=== PATIENT | female | born 1950 | race Caucasian/White ===

== ENCOUNTER → 2017-02-25 | Outpatient (CLI) | payer MEDICARE ==
--- NOTE | 2017-02-25 14:13 | KCIC ---
MRI Brain without contrast History: Headache, pain at the top of head with coughing last 3-4 months Technique: Multiplanar, multisequential noncontrast MR imaging was performed of the brain. Contrast: None Comparison: None Findings: There is no evidence of recent infarct or cytotoxic edema. Ventricular size is within normal limits.There is no significant midline shift, intraaxial mass effect, or focal abnormal extra-axial fluid collection. There is very mild T2 and FLAIR hyperintense abnormality of the supratentorial periventricular white matter bilaterally. There also a few small foci in the deep white matter such as of the frontal parietal lobes, also minimally of the karen. There is no significant hemosiderin deposition of the brain parenchyma. There are some cysts of the choroid plexus bilaterally. There is preservation of the major intracranial flow-voids at the skull base. The cerebellar tonsils are normal in location. There is no significant abnormality of the pineal gland or pituitary gland. There is patchy mild ethmoid air cell mucosal thickening bilaterally. There is a small probable mucous retention cyst of the anterolateral left sphenoid sinus 0.6 cm. Mastoid air cells are mostly aerated, some very small foci of fluid bilaterally. There is nonspecific heterogeneous low signal of the marrow of the nonexpanded clivus. Impression: 1. Minimal T2 and FLAIR hyperintense abnormality of the supratentorial parenchyma and karen is nonspecific, may be due to chronic microvascular disease in a patient this age. White matter changes can be seen in patients with migraine headaches. No other significant intracranial abnormality is identified. 2. There is nonspecific heterogeneous low signal of the marrow of the nonexpanded clivus inferiorly. While other underlying marrow lesion is difficult to entirely exclude, findings may be due to hyperplastic red marrow as can be associated with chronic or systemic stress reaction or hypoxia. Electronically signed by: Armaan Darnell MD (02/25/2017 2:09 PM) [facility]
== END | disposition home or self-care (01) ==
LOC: KCIC MRI 13:02
PROVIDERS: ATTEND Family Medicine
DX: R51 Headache (principal); R05 Cough
CPT/HCPCS: 70551

== ENCOUNTER 2018-11-20 09:14 | Emergency (ER) | payer MEDICARE, OTHER ==
[~2018-11-20] VITALS: Ht 170.2 cm; Wt 63.5 kg
[2018-11-20] MEDS ORDERED: IPRATRPIUM/ALBUTEROL 0.5/2.5MG 3 ML NEBU. NEB ONE (09:45)
[2018-11-20] MEDS ORDERED: methylPREDNISolone SOD SUCC PF 125 MG/2 ML VIAL. IV ONE (09:45)
[2018-11-20 09:52] LABS: BASO % 1 % (0-3); EOS # 0.1 x10^3/uL (0.0-0.7); EOS % 1 % (0-3); HEMATOCRIT 42.6 % (36.0-47.0); HEMOGLOBIN 14.7 g/dL (12.0-15.5); LYMPH % 20 % (24-48); MEAN CORPUSCULAR HEMOGLOBIN 32 pg (25-35); MEAN CORPUSCULAR HGB CONC 35 g/dL (31-37); MEAN CORPUSCULAR VOLUME 93 fL (79-100); MONO # 0.3 x10^3/uL (0.0-1.1); MONO % 7 % (0-9); NEUT # 3.4 x10^3/uL (1.8-7.7); NEUT % 71 % (31-73); PLATELET COUNT 219 x10^3/uL (140-400); RED BLOOD COUNT 4.59 x10^6/uL (3.50-5.40); RED CELL DISTRIBUTION WIDTH 13.8 % (11.5-14.5); WHITE BLOOD COUNT 4.7 x10^3/uL (4.0-11.0)
[2018-11-20 10:08] LABS: CALCIUM 9.2 mg/dL (8.5-10.1); CREATININE 0.6 mg/dL (0.6-1.0); GFR 99.1; POTASSIUM 4.2 mmol/L (3.5-5.1)
[2018-11-20 10:15] LABS: ALBUMIN 3.9 g/dL (3.4-5.0); ALBUMIN/GLOBULIN RATIO 1.1 (1.0-1.7); TOTAL BILIRUBIN 0.4 mg/dL (0.2-1.0); TOTAL PROTEIN 7.4 g/dL (6.4-8.2)
--- NOTE | 2018-11-20 10:25 | RAD ---
CHEST PA LATERAL History: Cough and shortness of breath Comparison: None. Findings: The cardiomediastinal silhouette is normal. Pulmonary vasculature is normal. The lungs are clear. No pleural effusion or pneumothorax is seen. Density at the posterior left paraspinal region which may represent hernia defect is evident. There is no acute bone abnormality. IMPRESSION: No acute cardiopulmonary process. Density at the posterior left paraspinal region which may represent hernia defect correlate with previous exams to assess stability. Electronically signed by: Leonardo Addison MD (11/20/2018 10:22 AM) [facility]
[2018-11-20] MEDS ORDERED: cefTRIAXone IV Push 1 GM VIAL. IVP ONE (11:15)
[2018-11-20 11:18] VITALS: BP 142/67
[2018-11-20] MEDS ORDERED: METH4TAB2 PO (11:41)
[2018-11-20] MEDS ORDERED: DOXY100C2 PO (11:41)
--- NOTE | 2018-11-20 11:41 | PHYS DOC ---
Past Medical History Past Medical History: No Pertinent History Alcohol Use: None Drug Use: None Adult General Chief Complaint Chief Complaint: SHORTNESS OF BREATH HPI HPI Patient is a 68 year old female with history of more than 50 years of smoking who presents with complaining of cough and shortness of breath. Patient complaining of productive cough with yellow sputum for the last 5 days and episodes of shortness of breath with mild activity. Patient denies fever and chest pain states his chest soreness during episodes of cough. Patient states she decreased her smoking to one or 2 cigarettes a day but still doesn't feel better. Patient has nebulizer and inhaler at home and treatment without improvement of her condition. Review of Systems Review of Systems Constitutional: Denies fever or chills [] Eyes: Denies change in visual acuity, redness, or eye pain [] HENT: Denies nasal congestion or sore throat [] Respiratory: Reports cough and shortness of breath Cardiovascular: No additional information not addressed in HPI [] GI: Denies abdominal pain, nausea, vomiting, bloody stools or diarrhea [] : Denies dysuria or hematuria [] Musculoskeletal: Denies back pain or joint pain [] Integument: Denies rash or skin lesions [] Neurologic: Denies headache, focal weakness or sensory changes [] Endocrine: Denies polyuria or polydipsia [] All other systems were reviewed and found to be within normal limits, except as documented in this note. Current Medications Current Medications Current Medications Medications (Trade) Dose Ordered Sig/Sofiya Start Time Stop Time Status Last Admin Dose Admin Albuterol/ Ipratropium (Duoneb) 3 ml 1X ONCE 11/20/18 09:45 11/20/18 09:52 DC 11/20/18 09:44 3 ML Ceftriaxone Sodium (Rocephin) 1 gm 1X ONCE 11/20/18 11:15 11/20/18 11:16 DC 11/20/18 11:21 1 GM Methylprednisolone Sodium Succinate (SOLU-Medrol 125MG VIAL) 125 mg 1X ONCE 11/20/18 09:45 11/20/18 09:52 DC 11/20/18 09:51 125 MG Allergies Allergies Allergies Coded Allergies Type Severity Reaction Last Updated Verified No Known Drug Allergies 11/20/18 No Physical Exam Physical Exam Constitutional: Well developed, well nourished, mild distress, non-toxic ap pearance. [] HENT: Normocephalic, atraumatic. Eyes: PERRLA, EOMI, conjunctiva normal, no discharge. [] Neck: Normal range of motion, no tenderness, supple, no stridor. [] Cardiovascular:Heart rate regular rhythm, no murmur [] Lungs & Thorax: Decrease of bilateral air movement Abdomen: Bowel sounds normal, soft, no tenderness, no masses, no pulsatile masses. [] Skin: Warm, dry, no erythema, no rash. [] Back: No tenderness, no CVA tenderness. [] Extremities: No tenderness, no cyanosis, no clubbing, ROM intact, no edema. [] Neurologic: Alert and oriented X 3, no focal deficits noted. [] Psychologic: Affect normal, judgement normal, mood normal. [] Current Patient Data Vital Signs Vital Signs Date Time Temp Pulse Resp B/P (MAP) Pulse Ox O2 Delivery O2 Flow Rate FiO2 11/20/18 11:18 68 18 142/67 (92) 96 11/20/18 09:45 Room Air 11/20/18 09:23 97.8 97.8 Lab Values Laboratory Tests Test 11/20/18 09:43 White Blood Count 4.7 x10^3/uL (4.0-11.0) Red Blood Count 4.59 x10^6/uL (3.50-5.40) Hemoglobin 14.7 g/dL (12.0-15.5) Hematocrit 42.6 % (36.0-47.0) Mean Corpuscular Volume 93 fL (79-100) Mean Corpuscular Hemoglobin 32 pg (25-35) Mean Corpuscular Hemoglobin Concent 35 g/dL (31-37) Red Cell Distribution Width 13.8 % (11.5-14.5) Platelet Count 219 x10^3/uL (140-400) Neutrophils (%) (Auto) 71 % (31-73) Lymphocytes (%) (Auto) 20 % (24-48) L Monocytes (%) (Auto) 7 % (0-9) Eosinophils (%) (Auto) 1 % (0-3) Basophils (%) (Auto) 1 % (0-3) Neutrophils # (Auto) 3.4 x10^3/uL (1.8-7.7) Lymphocytes # (Auto) 1.0 x10^3/uL (1.0-4.8) Monocytes # (Auto) 0.3 x10^3/uL (0.0-1.1) Eosinophils # (Auto) 0.1 x10^3/uL (0.0-0.7) Basophils # (Auto) 0.0 x10^3/uL (0.0-0.2) D-Dimer (Nora) < 0.27 ug/mlFEU Sodium Level 139 mmol/L (136-145) Potassium Level 4.2 mmol/L (3.5-5.1) Chloride Level 103 mmol/L (98-107) Carbon Dioxide Level 30 mmol/L (21-32) Anion Gap 6 (6-14) Blood Urea Nitrogen 13 mg/dL (7-20) Creatinine 0.6 mg/dL (0.6-1.0) Estimated GFR (Cockcroft-Gault) 99.1 BUN/Creatinine Ratio 22 (6-20) H Glucose Level 136 mg/dL (70-99) H Lactic Acid Level 1.0 mmol/L (0.4-2.0) Calcium Level 9.2 mg/dL (8.5-10.1) Total Bilirubin 0.4 mg/dL (0.2-1.0) Aspartate Amino Transferase (AST) 15 U/L (15-37) Alanine Aminotransferase (ALT) 10 U/L (14-59) L Alkaline Phosphatase 74 U/L (46-116) Creatine Kinase 112 U/L (26-192) Troponin I Quantitative < 0.017 ng/mL (0.000-0.055) SF-Mry-D-Type Natriuretic Peptide 112 pg/mL (0-124) Total Protein 7.4 g/dL (6.4-8.2) Albumin 3.9 g/dL (3.4-5.0) Albumin/Globulin Ratio 1.1 (1.0-1.7) Laboratory Tests 11/20/18 09:43 Laboratory Tests 11/20/18 09:43 EKG EKG EKG interpreted by me. EKG at 0 929 showed normal sinus rhythm at rate of 68, poor R-wave progress in anteroseptal leads, no acute ST and T-wave abnormalities. Radiology/Procedures Radiology/Procedures [][facility] [address] [place] [address] IMAGING REPORT Signed PATIENT: JENNY CASTRO ACCOUNT: [id number] : 1950 LOCATION: ER AGE: 68 SEX: F EXAM STATUS: REG ER ORD. PHYSICIAN: BHAVIK MEAD MD REASON: cough and shortness of breath PROCEDURE: CHEST PA & LATERAL CHEST PA LATERAL History: Cough and shortness of breath Comparison: None. Findings: The cardiomediastinal silhouette is normal. Pulmonary vasculature is normal. The lungs are clear. No pleural effusion or pneumothorax is seen. Density at the posterior left paraspinal region which may represent hernia defect is evident. There is no acute bone abnormality. IMPRESSION: No acute cardiopulmonary process. Density at the posterior left paraspinal region which may represent hernia defect correlate with previous exams to assess stability. Electronically signed by: Leonardo Solomon MD (11/20/2018 10:22 AM) [facility] DICTATED and SIGNED BY: LEONARDO SOLOMON MD DATE: 11/20/18 1022 Course & Med Decision Making Course & Med Decision Making Pertinent Labs and Imaging studies reviewed. (See chart for details) Evaluation of patient in ER showed 68-year-old female patient with long-standing smoking history and complaining of productive cough and shortness of breath for several days. Patient had nebulizer treatment with improvement of shortness of breath. Patient had O2 sat of 95% at room air. Patient had unremarkable chest x-ray, EKG and labs including lactic acid. Patient treated with Rocephin and Solu-Medrol in ER. Plan discharge patient home with diagnosis of acute bronchitis. Dragon Disclaimer Dragon Disclaimer This electronic medical record was generated, in whole or in part, using a voice recognition dictation system. Departure Departure Impression: Primary Impression: Acute bronchitis Additional Impressions: Tobacco abuse Tobacco abuse counseling Disposition: HOME, SELF-CARE (at 1128) Condition: IMPROVED Referrals: UNKNOWN PCP NAME (PCP) Patient Instructions: Acute Bronchitis, Smoking Cessation, Tips For Success Additional Instructions: Drink plenty of liquids Follow-up with your primary care physician in 3-5 days Return to ER if not getting better Continue home nebulizer and inhaler Scripts Methylprednisolone (MEDROL) 4 Mg Tab.ds.pk 1 PKG PO UD for inflammation, #1 PKG Prov: BHAVIK MEAD MD 11/20/18 Doxycycline Hyclate (DOXYCYCLINE HYCLATE) 100 Mg Capsule 1 CAP PO BID, #14 CAP Prov: BHAVIK MEAD MD 11/20/18 Problem Qualifiers Primary Impression: Acute bronchitis Bronchitis organism: unspecified organism Qualified Codes: J20.9 - Acute bronchitis, unspecified BHAVIK MEAD MD Nov 20, 2018 11:41
--- NOTE | 2018-11-20 18:11 | EKG ---
[facility] [address] [place] [address] Test Date: 2018-11-20 Test Time: 09:29:54 Pat Name: JENNY CASTRO Department: Room: Gender: F Teacher Adult Education: : 1950 Requested By: BHAVIK MEAD Order Number: [id number] [place] MD: Measurements Intervals [place] Rate: 68 P: -28 NM: 142 QRS: 42 QRSD: 100 T: 54 QT: 424 QTc: 456 Interpretive Statements SINUS RHYTHM QRS(T) CONTOUR ABNORMALITY CONSIDER ANTEROSEPTAL MYOCARDIAL DAMAGE POSSIBLY ABNORMAL ECG RI6.01 No previous ECG available for comparison
== END 2018-11-20 11:46 | disposition home or self-care (01) ==
LOC: ER 09:14
DX: J20.9 Acute bronchitis, unspecified (principal); F17.210 Nicotine dependence, cigarettes, uncomplicated; Z71.6 Tobacco abuse counseling
CPT/HCPCS: 36415; 71046; 80053; 82550; 83605; 83880; 84484; 85025; 85379; 93005; 94640; 96374; 96375; 99285; J0696; J2930; J7620

== ENCOUNTER → 2019-03-23 | Outpatient (CLI) | payer MEDICARE, OTHER ==
[~2019-03-23] MED LIST: DOXY100C2 PO; METH4TAB2 PO
--- NOTE | 2019-03-23 16:42 | RAD ---
CT of the chest without contrast, low dose lung cancer screening protocol 03/23/2019 INDICATION: 68-year-old female with approximately 50 pack year history of smoking. COMPARISON STUDY: Chest radiograph November 20, 2018 TECHNIQUE: Multidetector CT imaging of the chest was performed using a low-dose, lung cancer screening protocol FINDINGS: Heart size is normal. No pericardial effusion is identified. Scattered areas of coronary calcification noted. Calcified mediastinal lymph nodes noted in the right hilum. Calcified granuloma noted in the right upper lobe. No pathologically enlarged mediastinal lymphadenopathy is seen. Mild aortic calcification noted. Apical scarring is noted bilaterally. Severe centrilobular emphysema is noted. No pneumothorax, pleural effusion, or focal acute appearing infiltrate is identified. 2 mm noncalcified nodule noted in the anterior inferior right upper lobe (axial image 182). There is a small left-sided diaphragmatic defect. There is a fat-containing diaphragmatic hernia noted in the left medial basilar thorax. This is responsible for the opacity seen on prior radiograph. No acute osseous changes are identified. IMPRESSION: 1. 2 mm noncalcified lung nodule, anterior inferior right upper lobe. Lung RADS category 2. Estimated malignancy risk, less than 1%. Recommend continued annual screening with low-dose CT in 12 months. 2. Centrilobular emphysema 3. Small, left basilar fat-containing diaphragmatic hernia 4. Other chronic changes as described CT DOSING PQRS STATEMENT: One or more of the following individualized dose reduction techniques were utilized for this examination: 1. Automated exposure control 2. Adjustment of the mA and/or kV according to patient size 3. Use of iterative reconstruction technique Electronically signed by: Marc Saxena MD (03/23/2019 4:39 PM) [id number]
== END | disposition home or self-care (01) ==
LOC: CT 12:54
PROVIDERS: ATTEND Internal Medicine Pulmonary Disease
DX: Z12.2 Encounter for screening for malignant neoplasm of respiratory organs (principal); I25.10 Atherosclerotic heart disease of native coronary artery without angina pectoris; J84.10 Pulmonary fibrosis, unspecified; I70.0 Atherosclerosis of aorta; J98.4 Other disorders of lung; J43.2 Centrilobular emphysema; K44.9 Diaphragmatic hernia without obstruction or gangrene; R91.1 Solitary pulmonary nodule; Z87.891 Personal history of nicotine dependence
CPT/HCPCS: G0297